=== PATIENT | male | born 1945 | race Caucasian/White ===

== ENCOUNTER 2016-08-11 06:37 | Day surgery (SDC) | payer MEDICARE, OTHER ==
[~2016-08-11 06:37] MED LIST: PHENYLEPHRINE 2.5% OPHTH 2 ML DROPS ONE
[2016-08-11] MEDS ORDERED: LACTATED RINGERS 500 ML IV ONE (06:57)
[2016-08-11] MEDS ORDERED: INSULIN REGULAR HUMAN 100 UNIT/1 ML 10 ML MDV ONE ×2 (07:42→08:48)
[2016-08-11] MEDS ORDERED: fentaNYL 100 MCG/2 ML VIAL IVP ONE (08:15)
[2016-08-11] MEDS ORDERED: MIDAZOLAM 2 MG/2 ML VIAL IVP ONE (08:15)
[2016-08-11] MEDS ORDERED: EPINEPHrine 1 MG/ML AMP IVP ONE (09:12)
[2016-08-11] MEDS ORDERED: BRIMONIDINE 0.2% OPHTH DROPS 5 ML OPTH ONE (09:12)
[2016-08-11] MEDS ORDERED: CHONDR SULF/HYALURONATE SYRINGE IO ONE (09:13)
[2016-08-11] MEDS ORDERED: BSS/LIDOCAINE/EPINEPHRINE 1 ML SYRINGE IO ONE ×2 (09:13)
[2016-08-11] MEDS ORDERED: PROPARACAINE 0.5% OPHTH DROPS 15 ML OPTH ONE (09:13)
[2016-08-11] MEDS ORDERED: TRIAMCIN/MOXIFLOX/VANCO 1 ML VIAL IO ONE ×2 (09:13)
== END 2016-08-11 06:38 | disposition home or self-care (01) ==
PROC: 08RK3JZ Replacement of Left Lens with Synthetic Substitute, Percutaneous Approach (ICD-10-PCS; principal; 2016-08-11 08:00)
DX: H25.812 Combined forms of age-related cataract, left eye (principal); I10 Essential (primary) hypertension; I25.10 Atherosclerotic heart disease of native coronary artery without angina pectoris; N28.9 Disorder of kidney and ureter, unspecified; E11.9 Type 2 diabetes mellitus without complications; Z87.891 Personal history of nicotine dependence
CPT/HCPCS: 66984; A9270; J1815; V2632

== ENCOUNTER 2016-09-02 08:00 | Outpatient (CLI) | payer MEDICARE, OTHER | END 2016-09-02 23:59 | DX: E11.9 Type 2 diabetes mellitus without complications (principal) ==

== ENCOUNTER 2017-09-27 08:00 | Outpatient (CLI) | payer MEDICARE, OTHER ==
[2017-09-27 13:19] LABS: ALBUMIN 4.1 g/dL (3.2-5.5); ALBUMIN/GLOBULIN RATIO 1.3 (1.0-2.2); BILIRUBIN,TOTAL 0.7 mg/dL (0.2-1.0); CALCIUM 10.1 mg/dL (8.5-10.3); CREATININE 1.1 mg/dL (0.6-1.2); TOTAL PROTEIN 7.3 g/dL (6.7-8.2)
[2017-09-27 14:15] LABS: HB2 TOTAL 17.7 g/dL; HEMOGLOBIN A1C 2.27 g/dL; HEMOGLOBIN A1C % 13.9 % (4.6-6.2)
== END 2017-09-27 08:01 ==
LOC: LAB.WCP 08:00
PROVIDERS: ATTEND Family Medicine
DX: E11.9 Type 2 diabetes mellitus without complications (principal); R94.5 Abnormal results of liver function studies
CPT/HCPCS: 36415; 80053; 83036

== ENCOUNTER 2017-10-28 19:17 | Outpatient (CLI) | payer MEDICARE, OTHER | END 2017-10-28 19:18 | disposition short-term general hospital (02) | LOC: EMS 19:17 | PROVIDERS: ATTEND Surgery | DX: R53.1 Weakness (principal); R29.810 Facial weakness; R42 Dizziness and giddiness; M54.2 Cervicalgia; R51 Headache; R47.81 Slurred speech; W01.198A Fall on same level from slipping, tripping and stumbling with subsequent striking against other object, initial encounter; Y93.01 Activity, walking, marching and hiking; Y92.008 Other place in unspecified non-institutional (private) residence as the place of occurrence of the external cause | CPT/HCPCS: A0425; A0427 ==